=== PATIENT | male | born 1975 | race African-American/Black ===

== ENCOUNTER 2019-04-04 11:51 | Emergency (ER) | payer MEDICAID, SELFPAY ==
[2019-04-04 11:52] VITALS: BP 168/104; PULSE 99; RESP 16; TEMP 36.9; O2SAT 100; BMI 21.8
--- NOTE | 2019-04-04 12:07 | ED.RN ---
PT DECLINES FILE INJURY WORKER'S COMP
--- NOTE | 2019-04-04 12:15 | RAD_ITS ---
STUDY: X-RAY - LEFT HAND REASON FOR EXAM: Male, 43 years old. Laceration to the distal third and fourth digits. TECHNIQUE: 2 view(s) of the hand. COMPARISON: None. FINDINGS: Normal radiocarpal articulation. Normal distal radioulnar joint. Normal visualized carpal bones. Normal carpal articulations Normal carpometacarpal articulation of the thumb. Normal second through fifth carpometacarpal joints. Normal metacarpi. Normal metacarpophalangeal joint of the thumb. Normal interphalangeal joint of the thumb. Normal proximal and distal phalanges of the thumb. Normal metacarpophalangeal joints of the second through fifth fingers. Normal proximal and distal interphalangeal joints of the second through fifth fingers. Comminuted nondisplaced fracture of the distal phalanx of the third digit. Nondisplaced fracture of the tuft of the distal phalanx of the fourth digit. Soft tissue swelling. RAD/Hand 2 Views IMPRESSION: Comminuted nondisplaced fracture of the distal phalanx of the third digit as well as a nondisplaced fracture involving the tuft of the distal phalanx of the fourth digit. Soft tissue swelling. Electronically Signed: Isaac Tobar, at 12:42 EST , Service support ,
[2019-04-04] MEDS: HYDROcodone Bitartrate/Apap 5/325 Tablet PO (13:33)
[2019-04-04] MEDS: Cefazolin 1 GM/5 ML Vial IM (14:10)
--- NOTE | 2019-04-04 15:03 | ED.VIS.GEN ---
History of Present Illness Chief Complaint: Laceration Onset: Today Narrative: Patient presents with third and fourth digit laceration this is dorsal distal phalanx involving the nailbed. This was at work, he has no other injury Past Medical History - Allergies and Home Meds Allergies/Adverse Reactions: Allergies codeine Allergy (Verified 04/04/19 11:51) Hives Primary Care Physician: PACO PRAKASH [Other] Past Medical History: None Smoking Status: Current every day smoker Review of Systems General: Denies: Fever Musculoskeletal: Reports: Extremity Pain Skin: Reports: Wounds Neurological: Reports: Parasthesia, Numbness Hematologic: Denies: Easy bruising Physical Exam Vital Signs/Narrative: Vital Signs Temp Pulse Resp BP Pulse Ox 04/04/19 11:52 98.4 F 99 16 168/104 H 100 General: Well developed, No Acute Distress Back: Nontender, Normal Inspection. Negative for: CVA tenderness Extremities: - - There is a laceration over the third and fourth digits, third digit has a mid nailbed laceration which is quite deep and a more proximal laceration just proximal to the nailbed these are both dorsal, there is also a nailbed laceration over the fourth digit. Skin: - - As above Neurological: Normal Strength - Patient has normal strength and is able to extend and flex his digits no obvious tendon damage. He does have decreased sensation distally Diagnostic/Tx/Re-eval X-ray read by me shows a distal phalanx fracture of the third and fourth digit. Radiologist also read the x-ray and agrees. - Medical Decision Making I discussed the patient with Dr. Corrales, he will be seen outpatient now placed on antibiotics also splinted Procedures - Lacerations No standard instances Length: 1.18 in Depth: Sub Q Shape: Linear Prep: Sterile Conditions Laceration repair: Debrideded Number of Sutures/Leif: 3 Suture Information: Ethilon, Simple, 4-0 Comment: I placed 1 suture in the wound below the nailbed, I placed a suture each within the nailbed but I did not remove the nail. The suture went through the actual nail ED Disposition - Plan for ED Patient: Disposition: Home or Assisted Living Diagnosis: Nailbed laceration, finger Instructions: LACERATION, All, LACERATION, Hand Prescriptions: Cephalexin [Keflex] 500 mg PO Q6 #40 cap Prescription Printed Oxycodone HCl/Acetaminophen [Percocet 5/325] 1 tab PO Q6H PRN PRN 3 Days #12 tab PRN Reason: Pain Prescription Printed Referrals: Jasbir Corrales MD [STAFF PHYSICIAN] -
[2019-04-04 15:40] VITALS: BP 156/111; PULSE 78; RESP 18
== END 2019-04-04 15:41 | disposition home or self-care (01) ==
PROVIDERS: Emergency Provider Emergency Medicine
DX: S62.633A Displaced fracture of distal phalanx of left middle finger, initial encounter for closed fracture (principal); S62.635A Displaced fracture of distal phalanx of left ring finger, initial encounter for closed fracture; S61.313A Laceration without foreign body of left middle finger with damage to nail, initial encounter; S61.315A Laceration without foreign body of left ring finger with damage to nail, initial encounter; X58.XXXA Exposure to other specified factors, initial encounter; Y93.9 Activity, unspecified; Y92.9 Unspecified place or not applicable; F17.200 Nicotine dependence, unspecified, uncomplicated
CPT/HCPCS: 11760; 73120; 96372; 99284